=== PATIENT | female | born 1980 | race Caucasian/White ===

== ENCOUNTER 2018-02-03 22:25 | Emergency (ER) | payer OTHER ==
[2018-02-04] MEDS ORDERED: Ondansetron ODT 4 MG TAB ONE (00:36)
[2018-02-04] MEDS ORDERED: Ketorolac Tromethamine 60 MG/2 ML VIAL ONE (00:36)
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
== END 2018-02-04 01:00 | disposition home or self-care (01) ==
LOC: ERS 22:25
DX: S09.90XA Unspecified injury of head, initial encounter (principal); F41.9 Anxiety disorder, unspecified; F17.210 Nicotine dependence, cigarettes, uncomplicated; W50.0XXA Accidental hit or strike by another person, initial encounter
CPT/HCPCS: 70450; 96372; J1885; Q0162